=== PATIENT | female | born 1990 ===

== ENCOUNTER 2016-11-29 21:01 | Emergency (ER) | payer OTHER ==
[2016-11-29 21:14] VITALS: BP 130/70; TEMP 98.1; O2SAT 99
--- NOTE | 2016-11-29 21:40 | C.PDOC ---
History Of Present Illness 26 y/o female, 30 weeks , (denies abdominal pain, no vag bleeding. feels movement) c/o right heel pain x 1 day with no injury. pt sts it is worse when walking on it, and is tender to the touch. no fevers. no analgesics tried. no swelling to legs or feet. Time Seen by Provider: 11/29/16 21:21 Chief Complaint (Nursing): Lower Extremity Problem/Injury History Per: Patient Onset/Duration Of Symptoms: Days (1) Current Symptoms Are (Timing): Still Present Severity: Moderate Recent travel outside of the [place]: No Past Medical History Reviewed: Historical Data, Nursing Documentation, Vital Signs Vital Signs: Last Vital Signs Temp 98.1 F 11/29/16 21:11 Pulse 68 11/29/16 22:10 Resp 18 11/29/16 22:10 BP 130/70 11/29/16 21:11 Pulse Ox 99 11/29/16 22:11 - Medical History PMH: No Chronic Diseases Surgical History: No Surg Hx Family History: States: Unknown Family Hx - Social History Hx Tobacco Use: No Hx Alcohol Use: No Hx Substance Use: No - Immunization History Hx Tetanus Toxoid Vaccination: No Hx Influenza Vaccination: No Hx Pneumococcal Vaccination: No Review Of Systems Constitutional: Negative for: Fever, Chills Gastrointestinal: Negative for: Abdominal Pain Genitourinary: Negative for: Vaginal Bleeding Musculoskeletal: Positive for: Foot Pain (right) Skin: Negative for: Rash Neurological: Negative for: Weakness, Numbness Physical Exam - Physical Exam Appears: Non-toxic Skin: Warm, Dry Head: Atraumatic, Normacephalic Gastrointestinal/Abdominal: Other (gravid) Extremity: Normal ROM, Tenderness (right lateral heel and sole of foot posterior ; no erythema, edema or warmth), No Pedal Edema, No Calf Tenderness, No Deformity, No Swelling Extremity: Right: Bony Point Tenderness (lateral heel area), Painful To Bear Weight, Bilateral: Atraumatic, No Pedal Edema, Normal Color And Temperature, Normal ROM Pulses: Left Dorsalis Pedis: Normal, Right Dorsalis Pedis: Normal Neurological/Psych: Oriented x3, Normal Speech, Normal Cognition, Normal Motor, Normal Sensation ED Course And Treatment O2 Sat by Pulse Oximetry: 99 Medical Decision Making Medical Decision Makin26 y/o female with right heel pain x 1 day- possible plantar fasciitis , tx with tylenol, supportive shoes and f/u podiatry.. Disposition Counseled Patient/Family Regarding: Diagnosis, Need For Followup, Rx Given - Disposition Referrals: Podiatry Clinic [Outside] Disposition: HOME/ ROUTINE Disposition Time: 22:07 Condition: STABLE Additional Instructions: Wear supportive shoes; recommend well padded sneakers. Follow up in Podiatry clinic. Take Tylenol 650 mg by mouth every 4-6 hours for pain if needed. Return to ER for any worsening symptoms. Forms: General Discharge Instructions, Work Excuse - Clinical Impression Clinical Impression: Right foot pain
[2016-11-29 22:23] VITALS: PULSE 68; RESP 18
== END 2016-11-29 22:12 | disposition home or self-care (01) ==
LOC: C.ER 21:01
DX: M79.671 Pain in right foot (principal)